=== PATIENT | male | born 1970 | race Two or more races ===

== ENCOUNTER → 2016-10-14 | Outpatient (CLI) | payer OTHER ==
--- NOTE | ~2016-10-14 | CR7 ---
[facility] A Service of [facility] & [facility] RADIOLOGY TEXT RESULTS PATIENT: CHING BUCK LOCATION: [facility] : 70 UNIT #: [id number] AGE: [address]: Boston Sanchez MD SEX: M ORDER DR: [id number] [facility] [address] [place], [place] [address] [id number] O MR#: [id number] Acc #: [id number] NAME: CHING BUCK. : 1970 SEX: M STUDY DATE/TIME: 10/14/2016 11:26 UNIT: [facility] ROOM: STUDY DESCRIPTION: CR Abdomen Single AP View Attending Physician: Boston Sanchez M.D. Referring Physician: Boston Sanchez M.D. Ordering Physician: Boston Sanchez M.D. Primary Care Physician: Cheko Ornelas M.D. MEDICAL IMAGING REPORT This report is preliminary unless electronic signature is present EXAM Frontal abdomen 10/14/2016 INDICATIONS 46-year-old male with history of kidney stones. Followup of bilateral renal stones, lithotripsy in August of this year. No current complaints. Symptoms began 2 months ago. TECHNIQUE Frontal abdomen was performed. Comparison 08/18/2016 FINDINGS Right-sided ureteral stent has been removed in the interval. Both kidneys are obscured by air and fecal material particularly on the right, however, there do appear to be faint calcifications involving the mid and lower pole right kidney. No distinct calcifications overlie the left kidney. Previously demonstrated calcific densities in the left cris pelvis are no longer clearly identified. Bowel gas pattern nonspecific but nonobstructive. IMPRESSION 1. Removal of a preexisting right ureteral stent. 2. 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 3. Interval resolution of casting type calcifications involving the left hemipelvis which may involve the left ureter given interval change from prior study. Dictated by... Sabas Norman M.D. THIS IS AN ELECTRONICALLY VERIFIED REPORT Sabas Norman M.D. at 10/15/2016 10:23 AM [facility] A Service of [facility] RADIOLOGY TEXT RESULTS PATIENT: CHING BUCK [id number] UNIT #: [id number] AGE: [address]: Boston Sanchez MD SEX: M ORDER DR: Mary Lou TD: 10/15/2016 07:34 JOB #: [id number] MEDICAL IMAGING REPORT COPY
== END | disposition home or self-care (01) ==
LOC: CRAD 11:16
DX: N20.0 Calculus of kidney (principal); Z96.0 Presence of urogenital implants
CPT/HCPCS: 74000

== ENCOUNTER → 2016-12-16 | Outpatient (CLI) | payer OTHER ==
--- NOTE | ~2016-12-16 | CR7 ---
[facility] A Service of [facility] & [facility] RADIOLOGY TEXT RESULTS PATIENT: CHING BUCK LOCATION: [facility] : 70 UNIT #: [id number] AGE: [address]: Boston Sanchez MD SEX: M ORDER DR: [id number] [facility] [address] [place], [place] [address] [id number] O MR#: [id number] Acc #: [id number] NAME: CHING BUCK : 1970 SEX: M STUDY DATE/TIME: 12/16/2016 11:25 UNIT: [facility] ROOM: STUDY DESCRIPTION: CR Abdomen Single AP View Attending Physician: Boston Sanchez M.D. Referring Physician: Boston Sanchez M.D. Ordering Physician: Boston Sanchez M.D. Primary Care Physician: Cheko Ornelas M.D. MEDICAL IMAGING REPORT This report is preliminary unless electronic signature is present EXAM AP abdomen DATE: 12/16/2016 HISTORY 46-year-old male with history of kidney stones, passed stones approximately one month ago. No current complaints. COMPARISON AP abdomen 10/14/2016. CT abdomen and pelvis without contrast 07/07/2016. FINDINGS No renal or ureteral calculi are identified. Nonobstructive bowel gas pattern. Osseous structures within normal limits. IMPRESSION 1. No residual urinary tract stones are identified. The previously described casting type calcifications in the mid to lower renal pole are not evident on the current examination. Dictated by... Rita Santos M.D. THIS IS AN ELECTRONICALLY VERIFIED REPORT Rita Santos M.D. at 12/17/2016 9:[address] [facility]/yusuf TD: 12/16/2016 14:07 JOB #: [id number] MEDICAL IMAGING REPORT Page 1 of 1 COPY
== END | disposition home or self-care (01) ==
LOC: CRAD 11:15
DX: N20.0 Calculus of kidney (principal)
CPT/HCPCS: 74000